=== PATIENT | female | born 1965 | race Caucasian/White ===

== ENCOUNTER 2022-06-24 16:34 | Emergency (ER) | payer OTHER ==
[~2022-06-24] VITALS: Ht 157.5 cm; Wt 99.8 kg
[2022-06-24] MEDS ORDERED: KETOROLAC TROMETHAMINE 60 MG/2 ML VIAL IM ONE (17:45)
[2022-06-24] MEDS ORDERED: KETOROLAC TROMETHAMINE 60 MG/2 ML VIAL ONE (18:25)
[2022-06-24] MEDS ORDERED: HYDROCODONE/APAP 5MG-325MG TAB PO ONE (19:30)
[2022-06-24] MEDS ORDERED: HYDROCODON-ACE1 EA12 PO (19:33)
[2022-06-24] MEDS ORDERED: GABAPENTIN300 MG PO (19:38)
[2022-06-24] MEDS ORDERED: CELEBREX200 MG PO (19:40)
[2022-06-24] MEDS ORDERED: HYDROCODONE/APAP 5MG-325MG TAB ONE (19:43)
[2022-06-24 19:55] VITALS: BP 129/88
== END 2022-06-24 19:55 | disposition home or self-care (01) ==
LOC: FSED 16:39
DX: M25.561 Pain in right knee (principal); I10 Essential (primary) hypertension
CPT/HCPCS: 73562; 99283; J1885